=== PATIENT | female | born 1945 | race Caucasian/White ===

== ENCOUNTER 2018-12-25 21:59 | Emergency (ER) | payer MEDICARE, BC ==
[2018-12-25 22:23] VITALS: BP 139/86
--- NOTE | 2018-12-25 22:28 | EDM.PDOC ---
ED HPI GENERAL MEDICAL PROBLEM - General Chief Complaint: Lower Extremity Injury/Pain Stated Complaint: FELL AND HURT ANKLE [id number] Time Seen by Provider: 12/25/18 22:25 Source of Information: Reports: Patient History Limitations: Reports: No Limitations - History of Present Illness INITIAL COMMENTS - FREE TEXT/NARRATIVE: slipped on fell twisting left ankle was swollen but ice did take it down a bit, but pain goes down foot and up knee where she had total knee replacement. Treatments DIRECTOR TELECOMMUNICATIONS: Reports: Acetaminophen Left Feet Pain Score (Numeric/FACES): 5 - Related Data Allergies Allergy/AdvReac Type Severity Reaction Status Date / Time erythromycin base Allergy Nausea and Verified 12/25/18 22:35 Vomiting Penicillins Allergy Hives Verified 12/25/18 22:35 silicone Allergy Other Verified 12/25/18 22:35 simvastatin Allergy Other Verified 12/25/18 22:35 tetracycline Allergy Nausea and Verified 12/25/18 22:35 Vomiting Home Meds: Home Meds Acetaminophen [Mapap] 650 mg PO Q6HR PRN 10/22/15 [History] Aspirin [Halfprin] 81 mg PO DAILY 10/22/15 [History] Calcium Carbonate/Vitamin D3 [Calcium 600 + Vit D 400 Tablet] 2 - 3 tab PO BID 10/22/15 [History] Cetirizine [ZyrTEC] 10 mg PO DAILY 10/22/15 [History] Citalopram [Celexa] 15 mg PO DAILY 10/22/15 [History] Fluticasone Propionate [Flonase] 2 squirt NASBOTH BID 10/22/15 [History] Insulin Aspart [NovoLOG] 8 units INJECT ASDIRECTED PRN 10/22/15 [History] Lisinopril/Hydrochlorothiazide [Lisinopril-Hctz 10-12.5 mg Tab] 0.5 tab PO DAILY 10/22/15 [History] Melatonin/Pyridoxine HCl (B6) [Melatonin 5 mg Tablet] 1 tab PO DAILY 10/22/15 [ History] Benson-3 Fatty Acids [Benson-3] 1,200 mg PO DAILY 10/22/15 [History] Omeprazole 20 mg PO ASDIRECTED 10/22/15 [History] Pravastatin [Pravachol] 40 mg PO DAILY 10/22/15 [History] metFORMIN [Glucophage] 500 mg PO BIDMEALS 10/22/15 [History] Carbidopa/Levodopa [Carbidopa-Levo 25-100 MG ODT] 25 mg PO TID 12/25/18 [History ] Insulin Glargine,Hum.Rec.Anlog [Basaglar Kwikpen U-100] 28 units SQ DAILY [History] Oxybutynin 5 mg PO TID 12/25/18 [History] Past Medical History HEENT History: Reports: Allergic Rhinitis Cardiovascular History: Reports: High Cholesterol, Hypertension, Other (See Below) Other Cardiovascular History: MITRAL VALVE PROLAPSE; Respiratory History: Reports: Sleep Apnea, SOB Gastrointestinal History: Reports: Cholelithiasis, Diverticulosis, Irritable Bowel Syndrome Genitourinary History: Reports: Chronic Renal Insuffiency CLERK CASHIER History: Reports: Other (See Below) Other CLERK CASHIER History: DEGENERATIVE JOINT DISEASE Musculoskeletal History: Reports: Arthritis Neurological History: Reports: Other (See Below) Other Neuro History: RESTLESS LEG SYNDROME; INSOMNIA Psychiatric History: Reports: Anxiety, Depression Endocrine/Metabolic History: Reports: Diabetes, Type II Hematologic History: Reports: Anemia, B12 Deficiency Immunologic History: Reports: None Oncologic (Cancer) History: Reports: None Dermatologic History: Reports: None - Infectious Disease History Infectious Disease History: Reports: Chicken Pox, Measles, Mumps - Past Surgical History Female Surgical History: Reports: D&C, Hysterectomy, Salpingo-Oophorectomy, Other (See Below) Musculoskeletal Surgical History: Reports: Knee Replacement Review of Systems - Review of Systems Review Of Systems: ROS reveals no pertinent complaints other than HPI. ED EXAM, GENERAL - Physical Exam Exam: See Below Exam Limited By: No Limitations General Appearance: Alert, WD/WN, Mild Distress, Other ([place]) Ears: Hearing Grossly Normal Throat/Mouth: Normal Voice, No Airway Compromise Head: Atraumatic Neck: Non-Tender, Full Range of Motion Respiratory/Chest: No Respiratory Distress Cardiovascular: Regular Rate, Rhythm GI/Abdominal: Soft, Non-Tender Extremities: Other (tender R/P @ knee-ankle region, NV wnl, gait limited to pain while wearing cast boot.) Neurological: Alert, Oriented, Normal Cognition, No Motor/Sensory Deficits Psychiatric: Normal Affect, Normal Mood Skin Exam: Warm, Dry, Normal Color Lymphatic: No Adenopathy Course - Vital Signs Last Recorded V/S: Last Vital Signs Temp 36.6 C 12/25/18 22:12 Pulse 81 12/25/18 22:12 Resp 16 12/25/18 22:12 BP 139/86 12/25/18 22:12 Pulse Ox 100 12/25/18 22:12 - Orders/Labs/Meds Meds: Medications Discontinued Medications Generic Name Dose Route Start Last Admin Trade Name Adlea PRN Reason Stop Dose Admin Hydrocodone Bitart/Acetaminophen 1 tab 12/25/18 22:51 12/25/18 22:56 [place] 325-10 Mg PO 12/25/18 22:52 1 tab ONETIME ONE Administration - Re-Assessments/Exams Free Text/Narrative Re-Assessment/Exam: 12/25/18 23:24 results discussed with pt Departure - Departure Time of Disposition: 23:24 Disposition: Home, Self-Care 01 Condition: Good Clinical Impression: High ankle sprain of left lower extremity Qualifiers: Encounter type: initial encounter Qualified Code(s): S93.432A - Sprain of tibiofibular ligament of left ankle, initial encounter Left knee sprain Qualifiers: Encounter type: initial encounter Involved ligament of knee: unspecified ligament Qualified Code(s): S83.92XA - Sprain of unspecified site of left knee, initial encounter - Discharge Information Instructions: Ankle Sprain, [id number] Forms: ED Department Discharge Additional Instructions: 1) elevate leg as much as possible 2) wear boot as needed 3) follow up at clinic
[2018-12-25] MEDS ORDERED: Acetaminophen/HYDROcodone 325-10 MG Tab PO ONE (22:51)
== END 2018-12-25 23:30 | disposition home or self-care (01) ==
LOC: DL.ED 21:59
DX: S93.402A Sprain of unspecified ligament of left ankle, initial encounter (principal); I12.9 Hypertensive chronic kidney disease with stage 1 through stage 4 chronic kidney disease, or unspecified chronic kidney disease; E11.22 Type 2 diabetes mellitus with diabetic chronic kidney disease; N18.9 Chronic kidney disease, unspecified; S83.92XA Sprain of unspecified site of left knee, initial encounter; Z88.0 Allergy status to penicillin; Z88.8 Allergy status to other drugs, medicaments and biological substances; Z88.1 Allergy status to other antibiotic agents; Z79.82 Long term (current) use of aspirin; Z79.899 Other long term (current) drug therapy; X50.1XXA Overexertion from prolonged static or awkward postures, initial encounter
CPT/HCPCS: 73590; 73610; 73620; 99283; A9270

== ENCOUNTER 2022-01-16 06:26 | Day surgery (SDC) | payer MEDICARE, BC ==
[~2022-01-16 06:26] MED LIST: Dextrose 5%-0.45% NaCl 1,000 ML IV SCH; Midazolam 1 MG/ML 2 ML SDV ONE; Sodium Chloride 0.9% 10 ML Syringe FLUSH SCH; fentaNYL 100 MCG/2 ML SDV ONE
[2022-01-16] MEDS ORDERED: fentaNYL 100 MCG/2 ML SDV IV ONE ×2 (08:15→08:16)
[2022-01-16] MEDS ORDERED: Midazolam 1 MG/ML 2 ML SDV IV ONE ×2 (08:17)
[2022-01-16 14:33] VITALS: BP 161/87; PULSE 77
[2022-01-17] MEDS ORDERED: Sodium Chloride 0.9% 10 ML Syringe FLUSH PRN (06:00)
== END 2022-01-16 10:20 | disposition home or self-care (01) ==
LOC: DL.ENDO 06:26
PROVIDERS: ATTEND Internal Medicine Gastroenterology
DX: K21.9 Gastro-esophageal reflux disease without esophagitis (principal); E66.09 Other obesity due to excess calories; I10 Essential (primary) hypertension; E11.9 Type 2 diabetes mellitus without complications; F41.1 Generalized anxiety disorder; F32.A Depression, unspecified; Z68.36 Body mass index [BMI] 36.0-36.9, adult; Z01.812 Encounter for preprocedural laboratory examination; Z20.822 Contact with and (suspected) exposure to COVID-19
CPT/HCPCS: 87077; J2250; J3010; J7042; U0002

== ENCOUNTER 2022-01-20 06:32 | Day surgery (SDC) | payer MEDICARE, BC ==
[~2022-01-20 06:32] MED LIST changes: +Sodium Chloride 0.9% 10 ML Syringe FLUSH PRN
[2022-01-20] MEDS ORDERED: Midazolam 1 MG/ML 2 ML SDV IV ONE ×7 (06:33→08:28)
[2022-01-20] MEDS ORDERED: fentaNYL 100 MCG/2 ML SDV IV ONE ×3 (06:33→08:15)
[2022-01-20 10:49] VITALS: PULSE 77
[2022-01-20 10:50] VITALS: BP 128/74
== END 2022-01-20 10:47 | disposition home or self-care (01) ==
LOC: DL.ENDO 06:32
PROVIDERS: ATTEND Internal Medicine Gastroenterology
DX: K57.30 Diverticulosis of large intestine without perforation or abscess without bleeding (principal); E11.9 Type 2 diabetes mellitus without complications; F41.1 Generalized anxiety disorder; F32.A Depression, unspecified; Z68.36 Body mass index [BMI] 36.0-36.9, adult; E66.09 Other obesity due to excess calories
CPT/HCPCS: J2250; J3010; J7042